=== PATIENT | female | born 1955 | race Caucasian/White ===

== ENCOUNTER → 2020-04-03 | Outpatient (CLI) | payer BC | DX: R00.2 Palpitations (principal) ==

== ENCOUNTER 2020-07-08 05:51 | Day surgery (SDC) | payer BC ==
[2020-07-08] MEDS ORDERED: PROPOFOL 200 MG/20 ML VIAL IV ONE (07:00)
[2020-07-08] MEDS ORDERED: LIDOCAINE 1% 10 ML VIAL INJ ONE (07:00)
[2020-07-08] MEDS ORDERED: SODIUM CHLORIDE 0.9% 1000ML 1,000 ML ONE (07:16)
[2020-07-08 08:25] VITALS: O2SAT 98
--- NOTE | 2020-07-08 08:36 | OP ---
DATE OF PROCEDURE: 07/08/20 PREOPERATIVE DIAGNOSIS: 1. Gastroesophageal reflux disease without esophagitis. 2. Dysphagia. 3. Abnormal imaging of the GI tract. POSTOPERATIVE DIAGNOSIS: 1. Esophageal Schatzki's ring. 2. Large hiatal hernia. PROCEDURE: 1. Upper endoscopy with dilation. SURGEON: Moe Rascon MD ANESTHESIA: Monitored anesthesia care. ESTIMATED BLOOD LOSS: Less than 5 mL. COMPLICATIONS: None. PROCEDURE: The patient was placed in the left lateral decubitus position. A time-out was performed. After deep sedation was achieved, the Olympus adult upper endoscope was inserted through the oropharynx and into the proximal esophagus and advanced to the second portion of the duodenum under direct visualization. The endoscope was then progressively withdrawn and the duodenum, stomach and esophageal lumen were evaluated. Retroflexion was performed in the stomach. A Savary guidewire was then advanced through the endoscope into the gastric antrum. The endoscope was then withdrawn, leaving the guidewire in place. Savary dilation of the distal esophagus was performed with the 17-mm Savary dilator. A second-look endoscopy was not performed. The guidewire and dilator were withdrawn and the procedure terminated. The patient tolerated the procedure well with no immediate complications. FINDINGS: 1. Esophagus: A moderate esophageal Schatzki's ring was seen at the gastroesophageal junction, approximately 32 cm from the incisors. Savary dilation to 17 mm was performed as above. A second look endoscopy was not performed. 2. Stomach: A large hiatal hernia was noted. The stomach was otherwise unremarkable. 3. Duodenum: The first and second portions of the duodenum were unremarkable. IMPRESSION: 1. Esophageal Schatzki's ring, dilated as above. 2. Large hiatal hernia. RECOMMENDATIONS: 1. Okay to discharge home once the patient meets discharge criteria. 2. Advance diet as tolerated. 3. Resume home medications. 4. Followup in GI clinic in 4 weeks. #[id number] [facility]
[2020-07-08 09:05] VITALS: BP 126/70; TEMP 97.8
== END 2020-07-08 08:55 | disposition home or self-care (01) ==
LOC: AMB 05:51
PROVIDERS: ATTEND Internal Medicine Gastroenterology
DX: K22.2 Esophageal obstruction (principal); K44.9 Diaphragmatic hernia without obstruction or gangrene; K21.9 Gastro-esophageal reflux disease without esophagitis; I10 Essential (primary) hypertension; Z79.899 Other long term (current) drug therapy; Z88.8 Allergy status to other drugs, medicaments and biological substances
CPT/HCPCS: 00731; 43248; J3490; J7030

== ENCOUNTER → 2020-07-10 | Outpatient (CLI) | payer BC ==
--- NOTE | 2020-07-10 19:27 | MRI ---
EXAM DESCRIPTION: Lumbar Spine w/o Contrast : Magnetic Resonance Imaging. CLINICAL HISTORY: COMPLEX REGIONAL PAIN SYNDROME OF LEFT LOWER LIMB COMPARISON: MRI scan of the left hip on the same visit. TECHNIQUE: Multiplanar, multiple standard sequences, non contrast MRI, lumbar spine. FINDINGS: L5-S1: The disc is well visualized on axial T2 series 501, image 3. L5-S1: Disc desiccation and disc space loss. Posterior left paracentral broad-based bulge abutting the descending left S1 nerve with mild canal narrowing. Left side mild endplate reactive changes and Schmorl's node in the inferior L5 anterior endplate. Mild hypertrophic changes in the facet joints and flavum ligaments (canal elements). Canal is patent. Moderate narrowing of the left foramen and mild narrowing of the right foramen. L4-L5: Disc desiccation with disc space maintained. 2 to 3 mm grade 1 anterolisthesis. Moderate hypertrophic changes in the canal elements, narrowing the transverse canal. AP canal diameter 10 mm. Moderate narrowing of the left foramen and mild right foraminal stenosis. L3-L4: Normal signal in the disks with disc space maintained. Minimal hypertrophy of the canal elements. Canal is patent. Bilateral foramina are patent. L2-L3: Normal signal in the disc with disc space maintained. No bulging. Mild hypertrophic changes in the canal elements. Narrowing of the transverse canal and AP canal is patent. Bilateral foramina are unremarkable. L1-L2: Minimal disc desiccation with disc space maintained. No posterior bulging. Minimal hypertrophic changes in the canal elements narrowing the transverse canal. AP canal patent. Bilateral foramina are patent. Perineural cyst in the right foramen T12-L1: Disc desiccation with moderate endplate reactive changes anteriorly, disc space loss and anterior spurs. Minimal posterior broad-based disc bulge. Mild hypertrophic changes in the canal elements. Canal is patent. Bilateral foramina are patent. Conus terminates at this level. No significant scoliosis. Paravertebral soft tissues paraspinal muscle atrophy.. Distal cord normal signal and caliber. Otherwise normal marrow signal in the remaining vertebral bodies and the posterior elements. Vertebral bodies are not compressed at any level. IMPRESSION: 1. L4-L5 anterolisthesis. Advanced spondylosis at T12-L1. Mild spondylosis L5-S1. Multiple levels of degenerative hypertrophy of the facet joints and labral ligaments. Most of the foramina are patent and disc spaces are unremarkable. 2. Borderline mild central canal stenosis L4-L5. Mild right foraminal stenosis. Correlate for right L4 radiculopathy. 3. Posterior left paracentral L5-S1 bulge is abutting the descending left S1 nerve. Left side spondylosis. 4. Moderate spondylosis at T12-L1 is mostly anterior with marked disc space narrowing and anterior spurs. Canal and foramina are patent. Electronically signed by: Tevin Woods MD 07/10/2020 7:26 PM CDT
--- NOTE | 2020-07-13 08:54 | MRI ---
EXAM DESCRIPTION: MRI left hip CLINICAL HISTORY: Trochanteric bursitis. Hip pain COMPARISON: None. TECHNIQUE: Multiplanar, multisequence MR images of the left hip FINDINGS: High-grade peelback partial detachment of the gluteus minimus tendon from the anterior greater trochanter. Anterior gluteus medius tendinosis with intratendinous and peritendinous edema and low-grade partial tear. Anterior bursal edema with small volume of fluid. The remaining tendon attachments to the femur are normal. Normal tendon attachments to the pelvis. Degeneration of the anterior superior labrum. The labrum is blunted. No acute labral detachment. Prominent superior lateral to posterior superior acetabular rim. No focal osteochondral lesion of the femoral head or acetabulum. Physiologic joint fluid. Normal marrow signal. Mild osteoarthritis pubic symphysis No pelvic soft tissue mass lesion, adenopathy or free fluid IMPRESSION: High-grade insertional partial tear of the gluteus minimus. Anterior gluteus medius tendinosis Trochanteric bursitis with bursal edema and small volume fluid Electronically signed by: Kirby Umana MD 07/13/2020 8:53 AM CDT
== END ==
LOC: MRI 12:59
PROVIDERS: ATTEND Family Medicine Sports Medicine
DX: M43.16 Spondylolisthesis, lumbar region (principal); M47.895 Other spondylosis, thoracolumbar region; M47.897 Other spondylosis, lumbosacral region; M48.061 Spinal stenosis, lumbar region without neurogenic claudication; M25.78 Osteophyte, vertebrae; M70.62 Trochanteric bursitis, left hip; S76.011A Strain of muscle, fascia and tendon of right hip, initial encounter; R60.9 Edema, unspecified; G90.522 Complex regional pain syndrome I of left lower limb

== ENCOUNTER → 2020-08-28 | Outpatient (CLI) | payer BC ==
--- NOTE | 2020-08-28 15:23 | US ---
EXAM DESCRIPTION: Abdomen,Limited: ULTRASOUND. CLINICAL HISTORY: RIGHT UPPER QUADRANT PAIN COMPARISON: None. TECHNIQUE: Transabdominal scanning: garcia-scale mode. Doppler mode. FINDINGS: Gallbladder: Slightly dilated, with sludge. Differently shaped echogenic gallstones.. Echogenic shadowing. The largest stone is 2.1 cm diameter. No fluid around the gallbladder. No wall thickening. 1.9 mm. Non-tender with transducer pressure. Common bile duct: caliber 6.5 mm borderline dilated. Liver: normal echogenicity; contour liver capsule smooth where seen. No fluid around the liver. Intrahepatic biliary ducts normal caliber. Doppler hepatopedal flow and normal caliber portal vein.. 10 mm. Long axis right lobe 13.4 cm. Pancreas: Not well visualized; duct not seen. Proximal abdominal aorta: 1.8 cm normal caliber.. IVC: visualized and normal caliber. Right kidney: long axis measures 10.1 cm; volume 92.6 ml. Cortical echogenicity is normal. Cortical thickness normal.. No echogenic stones and no hydronephrosis. IMPRESSION: 1. Cholelithiasis and sludge and dilated gallbladder with no wall thickening, no fluid, no tenderness. Borderline dilation of the common bile duct. No ascites. 2. Liver unremarkable. Pancreas not well seen. Normal caliber of the proximal abdominal aorta and IVC. 3. Right kidney is negative. Electronically signed by: Tevin Woods MD 08/28/2020 3:21 PM CDT
== END ==
LOC: US 11:08
PROVIDERS: ATTEND Surgery
DX: K80.20 Calculus of gallbladder without cholecystitis without obstruction (principal); K82.8 Other specified diseases of gallbladder

== ENCOUNTER 2020-10-04 04:23 | Emergency (ER) | payer BC ==
[2020-10-04] MEDS ORDERED: ONDANSETRON INJ 4 MG/2 ML VIAL IV ONE (04:46)
[2020-10-04] MEDS ORDERED: SODIUM CHLORIDE 0.9% 1000ML 1,000 ML IVS ONE (04:46)
[2020-10-04 04:48] VITALS: TEMP 97.5
--- NOTE | 2020-10-04 04:50 | ED.PDOC ---
History of Present Illness - General Chief Complaint: GI Problem Stated Complaint: N/V/D Time Seen by Provider: 10/04/20 04:46 Information Source: patient, RN notes reviewed, Vital Signs reviewed Exam Limitations: no limitations - History of Present Illness Initial Comments: Patient is a 65-year-old white female who presents with complaints of nausea, vomiting and diarrhea. This started approximately 4 hours ago. Patient denies any blood in the vomitus or in the diarrhea. Nobody else is sick at home. 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 Patient's abdominal pain is cramping in nature. Its moderate in intensity. There is no radiation of the pain. The pain is intermittent. Abdominal Pain Onset Location: generalized abdomen Pain Radiation: no radiation Quality: moderate, cramping, waxing/waning Timing/Duration: 4-6 hours Improving Factors: nothing Worsening Factors: nothing Associated Symptoms: diarrhea, nausea/vomiting Review of Systems - Review of Systems Constitutional: States: no symptoms reported, see HPI. Denies: chills, fever, malaise, weakness EENTM: States: no symptoms reported. Denies: eye pain, blurred vision, double vision Respiratory: States: no symptoms reported. Denies: cough, short of breath, stridor Cardiology: States: no symptoms reported. Denies: chest pain, palpitations, syncope Gastrointestinal/Abdominal: States: see HPI, abdominal pain, diarrhea, nausea, vomiting Genitourinary: States: no symptoms reported. Denies: dysuria, frequency Musculoskeletal: States: no symptoms reported. Denies: back pain, joint pain, neck pain Skin: States: no symptoms reported. Denies: change in color, rash Neurological: States: no symptoms reported. Denies: tingling, tremors, weakness Endocrine: States: no symptoms reported. Denies: increased hunger, increased thirst, increased urine Hematologic/Lymphatic: States: no symptoms reported. Denies: blood clots, easy bleeding All other Systems: Reviewed and Negative Past Medical History (General) - Patient Medical History Hx Congestive Heart Failure: No Hx Diabetes: No Family Medical History - Family History Mother Family History: Unknown Physical Exam - Physical Exam General Appearance: Alert, Anxious, Comfortable, Well Developed, Well Groomed, Well Hydrated, Well Nourished Eyes, Ears, Nose, Throat Exam: PERRL/EOMI, normal ENT inspection, pharynx normal Neck: non-tender, full range of motion, supple Respiratory: chest non-tender, lungs clear, normal breath sounds, no respiratory distress, no accessory muscle use Cardiovascular/Chest: normal peripheral pulses, regular rate, rhythm, no edema, no gallop, no JVD, no murmur Peripheral Pulses: No deficit Gastrointestinal/Abdominal: normal bowel sounds, non tender, soft, no organo megaly, no pulsatile mass Back Exam: normal inspection, no CVA tenderness, no vertebral tenderness Extremity: normal range of motion, non-tender, normal inspection Neurologic: trouble lineman II-XII nml as tested, no motor/sensory deficits, alert, normal mood/affect, oriented x 3 Skin Exam: normal color, warm/dry Lymphatic: no adenopathy Progress - Progress Progress: Differential diagnosis: Viral gastroenteritis, bacterial enteritis, bowel obstruction, food poisoning among others. 10/04/20 05:59 Patient's improved after IV fluids and IV Zofran. Plan on discharge home with a prescription for Zofran and follow-up with PCP. Of discussed this with the patient and her and they voiced understanding and agreement with plan of care. Nick Umana M.D. #[id number] - Results/Orders Results/Orders: EKG performed 04 October 2020 at 0513 hrs.: Normal sinus rhythm 83 bpm, normal axis deviation, no ST or T wave changes, normal EKG. No comparison EKG available at this time. 10/04/20 04:30 IV:Start .ONCE 10/04/20 05:00 EKG .ONCE Laboratory Results - last 24 hr 10/04/20 10/04/20 10/04/20 04:35 04:35 05:05 WBC 15.6 H RBC 3.92 L Hgb 11.6 L Hct 33.7 L MCV 86.1 MCH 29.7 MCHC 34.5 RDW 13.2 Plt Count 313 MPV 7.4 Absolute Neuts (auto) 12.70 H Absolute Lymphs (auto) 1.50 Absolute Monos (auto) 1.10 H Absolute Eos (auto) 0.20 Absolute Basos (auto) 0.10 Neutrophils % 81.4 H Lymphocytes % 9.6 L Monocytes % 6.9 Eosinophils % 1.6 Basophils % 0.5 Sodium 138 Potassium 3.3 L Chloride 100 L Carbon Dioxide 27 Anion Gap 14.3 BUN 16 Creatinine 0.88 BUN/Creatinine Ratio 18.2 Random Glucose 114 H Serum Osmolality 277.7 Calcium 9.4 Total Bilirubin 0.5 AST 32 ALT 14 Alkaline Phosphatase 52 Serum Total Protein 7.3 Albumin 3.9 Globulin 3.4 Albumin/Globulin Ratio 1.1 Lipase 35 Urine Color Yellow Urine Appearance Clear Urine pH 5.5 Ur Specific [place] 1.020 Urine Protein Negative Urine Glucose (UA) Negative Urine Ketones Negative Urine Blood Negative Urine Nitrite Negative Urine Bilirubin Small H Urine Urobilinogen 0.2 Ur Leukocyte Esterase Negative Urine RBC 0 Urine WBC 0-1 Ur Epithelial Cells 3-5 Urine Bacteria Rare Vital Signs 10/04/20 10/04/20 04:23 05:30 Temperature 97.5 F L Pulse Rate [ 90 82 Left Radial] Respiratory 18 18 Rate Blood Pressure 126/71 131/67 [Left Arm] O2 Sat by Pulse 99 97 Oximetry Departure - Departure Clinical Impression: Viral gastroenteritis, Hypokalemia Time of Disposition: 06:05 Disposition: Discharge to Home or Self Care Condition: Good Departure Forms: ED Discharge - Pt. Copy, Patient Portal Self Enrollment Instructions: Viral Gastroenteritis, Adult (DC), Hypokalemia (DC) Referrals: Miller Alvarado MD [Primary Care Provider] - 1-2 Weeks Prescriptions: Ondansetron [Ondansetron Odt] 4 mg PO Q6H #20 tab Home Medications: Ambulatory Orders Amlodipine Besylate [Norvasc] 5 mg PO DAILY 07/07/20 Cholecalciferol [Vitamin D] 10,000 unit PO BEDTIME 07/07/20 Etodolac [Etodolac ER] 400 mg PO DAILY 07/07/20 Ferrous Sulfate [Iron] 325 mg PO DAILY 07/07/20 Methocarbamol [Robaxin] 750 mg PO QID 07/07/20 Mirabegron [Myrbetriq] 50 mg PO DAILY 07/07/20 Oxycodone W/ Acetaminophen [Oxycodone/Acetaminophen 10-325 mg] 1 tab PO Q4HR PRN 07/07/20 Propranolol HCl 40 mg PO BID 07/07/20 Solifenacin Succinate [Vesicare] 10 mg PO DAILY 07/07/20 Thyroid [Waucoma Thyroid] 90 mg PO DAILY 09/08/20 Valsartan-Hydrochlorothiazide [Valsartan/Hydrochlorothia 160-25 mg] 1 tab PO DAILY 07/07/20 Misc Natural Products [[employer]] 1 tab PO DAILY 10/04/20 Ondansetron [Ondansetron Odt] 4 mg PO Q6H #20 tab 10/04/20
[2020-10-04 06:09] VITALS: BP 120/78; O2SAT 98
== END 2020-10-04 06:10 | disposition home or self-care (01) ==
LOC: ER 04:23
DX: A08.4 Viral intestinal infection, unspecified (principal); E87.6 Hypokalemia; Z20.828 Contact with and (suspected) exposure to other viral communicable diseases
CPT/HCPCS: 80053; 81001; 83690; 85025; 87635; 93005; J2405; J7030